=== PATIENT | female | born 1995 | race African-American/Black ===

== ENCOUNTER 2020-12-18 08:54 | Emergency (ER) | payer BC, MEDICAID ==
--- NOTE | 2020-12-18 11:25 | US ---
INDICATION: Fourteen weeks . Pelvic pain. TECHNIQUE: Ultrasound OB pelvis transabdominal. Real-time monzon-scale imaging of the fetus was performed as well as color Doppler and spectral Doppler analysis of the umbilical artery. COMPARISON: None. FINDINGS: Sonographic imaging demonstrates a single living intrauterine gestation. Fetus demonstrates a regular cardiac rate of 140 beats per minute. Fetus has a cephalic orientation. The placenta lies posterior without evidence of placenta previa. Amniotic fluid volume appears normal with a single deepest pocket of 3.9 cm. Biometry: Biparietal diameter: 2.7 cm, 14 weeks 6 days. Head circumference: 10.2 cm, 14 weeks 6 days. Abdominal circumference: 8.9 cm, 15 weeks 1 day. Femoral length: 1.7 cm, 15 weeks 1 day. The composite ultrasound gestational age is calculated at 15 weeks 0 days with an estimated sonographic due date of June 11, 2021. The weight is estimated at 114 grams, the 87th percentile. IMPRESSION: 1.Single viable intrauterine . 2.No abnormality evident. No finding to explain pain. Dictated by Wilfred Mesa MD @ 12/18/2020 11:23:[address] Wilfred Mesa @ Dec 18 2020 11:23AM
--- NOTE | 2020-12-18 12:04 | EDM.PDOC ---
ED HPI GENERAL MEDICAL PROBLEM - General Chief Complaint: [employer] Problem Stated Complaint: CRAMPING, PT IS Time Seen by Provider: 12/18/20 09:32 - History of Present Illness INITIAL COMMENTS - FREE TEXT/NARRATIVE: HISTORY AND PHYSICAL: History of present illness: This is a 25-year-old female who is 4 para 1 who presents to the ER today after being referred here from [facility] for evaluation of abdomina l pain during . Patient is approximately 14 weeks by date and ultrasound. Patient reports that she has had close follow-up with her [employer] doctor. Patient reports that early this morning she started experiencing cramping in her abdomen with no vaginal bleeding or discharge. Patient denies any recent fevers, shakes, chills, nausea, vomiting, diarrhea, dysuria, frequency, urgency, chest pain, shortness of breath. Patient reports that her abdominal pain and cramping has currently subsided. Patient reports that she declined ambulance transfer from [facility] and came here by POV for an ultrasound as recommended by them. Review of systems: As per history of present illness and below otherwise all systems reviewed and negative. Past medical history: As per history of present illness and as reviewed below otherwise noncontributory. Surgical history: As per history of present illness and as reviewed below otherwise noncontributory. Social history: No reported history of drug abuse. Family history: As per history of present illness and as reviewed below otherwise noncontributory. Physical exam: This patient was seen and evaluated during the 2019 SARS-CoV-2 novel coronavirus pandemic period. Community viral transmission is ongoing at time of this encounter and the emergency department is operating under pandemic response procedures. Constitutional: Patient is oriented to person, place, and time. Appears well- developed and well-nourished. No distress. HEENT: Moist mucous membranes Head: Normocephalic and atraumatic Eyes: Right eye exhibits no discharge. Left eye exhibits no discharge. No scleral icterus Neck: Normal range of motion. No tracheal deviation present. Cardiovascular: Normal rate and regular rhythm. Pulmonary: Effort normal, no respiratory distress. Abdominal: No distention, gravid and age-appropriate for 14 weeks. Soft no rebound/guarding, no psoas or obturator signs, no tenderness at Mcberney's point, no Becker's sign. Pt does not present with an exam that would be consistent with an acute surgical abdomen at this time Musculoskeletal: Normal range of motion Neurologic: Alert and oriented to person, place and time. Skin: [place], warm and dry. Psychiatric: Normal mood and affect. Behavior is normal. Judgment and thought content normal. Nursing note and vital signs have been reviewed Diagnostics: [] Therapeutics: Ultrasound reveals a 14-week 6-day IUP with no other abnormalities identified on ultrasound. Lab tests reviewed from [facility] all of which were unremarkable including a normal CBC, CMP, LFTs, SARS negative, normal urinalysis, Assessment and plan: 25-year-old female who is with abdominal cramping earlier today which is currently resolved. Patient's ultrasound was unremarkable with a 14-week 6- day IUP. Patient is clinically hemodynamically stable. Patient be discharged home with follow-up with her primary [employer] doctor Reassessment at the time of disposition demonstrates that the patient is in no acute distress. The patient has remained stable throughout the entire ED visit and is without objective evidence for acute process requiring urgent intervention or hospitalization. The patient is stable for discharge, counseling is provided as documented above, discussed symptomatic treatment and specific conditions for return. I have spoken with the patient/caregiver and discussed todays findings, in addition to providing specific details for the plan of care. Questions are answered and there is agreement with the plan. Definitive disposition and diagnosis as appropriate pending reevaluation and review of above. bilateral lower abdomen Pain Score (Numeric/FACES): 2 - Related Data Allergies Allergy/AdvReac Type Severity Reaction Status Date / Time No Known Allergies Allergy Verified 12/18/20 09:25 Home Meds: Home Meds Ondansetron [Zofran ODT] 12/18/20 [History] Past Medical History - Past Health History Medical/Surgical History: Denies Medical/Surgical History HEENT History: Reports: None Cardiovascular History: Reports: None Respiratory History: Reports: None Gastrointestinal History: Reports: None Genitourinary History: Reports: None [employer] History: Reports: Musculoskeletal History: Reports: None Neurological History: Reports: None Psychiatric History: Reports: None Endocrine/Metabolic History: Reports: None Hematologic History: Reports: None Immunologic History: Reports: None Oncologic (Cancer) History: Reports: None Dermatologic History: Reports: None - Infectious Disease History Infectious Disease History: Reports: None - Past Surgical History Head Surgeries/Procedures: Reports: None Social & Family History - Family History Family Medical History: No Pertinent Family History - Tobacco Use Tobacco Use Status *Q: Never Tobacco User Second Hand Smoke Exposure: No - Caffeine Use Caffeine Use: Reports: None - Recreational Drug Use Recreational Drug Use: No ED ROS GENERAL - Review of Systems Review Of Systems: See Below ED EXAM, GENERAL - Physical Exam Exam: See Below Course - Vital Signs Last Recorded V/S: Last Vital Signs Temp 98.4 F 12/18/20 09:20 Pulse 78 12/18/20 10:10 Resp 20 12/18/20 10:10 BP 98/57 L 12/18/20 10:10 Pulse Ox 97 12/18/20 10:10 Departure - Departure Time of Disposition: 12:03 Disposition: Home, Self-Care 01 Condition: Good Clinical Impression: Abdominal pain during in second trimester - Discharge Information Instructions: Abdominal Pain During , [id number] Referrals: Beatriz Wayne MD [Primary Care Provider] - Additional Instructions: You were seen and evaluated in ER today secondary to abdominal pain during her second trimester. The ultrasound report did not show any significant abnormalities. The ultrasound revealed a 14-week 6-day baby. Please make an appointment to follow-up with your [employer] doctor for further evaluation. The following information is given to patients seen in the emergency department who are being discharged to home. This information is to outline your options for follow-up care. We provide all patients seen in our emergency department with a follow-up referral. The need for follow-up, as well as the timing and circumstances, are variable depending upon the specifics of your emergency department visit. If you don't have a primary care physician on staff, we will provide you with a referral. We always advise you to contact your personal physician following an emergency department visit to inform them of the circumstance of the visit and for follow-up with them and/or the need for any referrals to a consulting specialist. The emergency department will also refer you to a specialist when appropriate. This referral assures that you have the opportunity for follow-up care with a specialist. All of these measure are taken in an effort to provide you with optimal care, which includes your follow-up. Under all circumstances we always encourage you to contact your private physician who remains a resource for coordinating your care. When calling for follow-up care, please make the office aware that this follow-up is from your recent emergency room visit. If for any reason you are refused follow-up, please contact the [facility] Emergency Department at and asked to speak to the emergency department charge nurse. [facility] [address] [place] [id number] [facility] [address] [place] [id number] Sepsis Event Note (ED) - Evaluation Sepsis Screening Result: No Definite Risk - Focused Exam Vital Signs: Vital Signs Temp Pulse Resp BP Pulse Ox 12/18/20 10:10 78 20 98/57 L 97 12/18/20 09:20 98.4 F 94 20 121/70 98
== END 2020-12-18 12:24 | disposition home or self-care (01) ==
LOC: MW.ED 08:54
DX: O99.891 Other specified diseases and conditions complicating pregnancy (principal); R10.31 Right lower quadrant pain; R10.32 Left lower quadrant pain; Z3A.14 14 weeks gestation of pregnancy
CPT/HCPCS: 76801; 76801-26; 99284-25

== ENCOUNTER 2021-06-10 05:06 | Inpatient (IN) | payer BC, MEDICAID ==
[2021-06-10] MEDS ORDERED: Lidocaine/Prilocaine 2.5-2.5% Crm 30 GM Tube TOP STA (05:31)
[2021-06-10] MEDS ORDERED: Sodium Chloride 0.9% 10 ML Syringe FLUSH PRN (05:32)
[2021-06-10] MEDS ORDERED: Sodium Chloride 0.9% 20 ML SDV IV PRN (05:32)
[2021-06-10] MEDS ORDERED: Citric Acid/Sodium Citrate Solution 30 ML Cup PO ONE (05:32)
[2021-06-10] MEDS ORDERED: Sodium Chloride 0.9% 2.5 ML Syringe FLUSH PRN (05:32)
[2021-06-10] MEDS ORDERED: Oxytocin/0.9 % Sodium Chloride 30 UNIT/500 ML BAG IV SCH (05:45)
[2021-06-10] MEDS: Lactated Ringers 1,000 ML IV SCH ×4 (06:30→19:02)
[2021-06-10] MEDS ORDERED: Morphine PF 10 MG/10 ML SDV ONE (07:00)
[2021-06-10] MEDS ORDERED: Ondansetron 4 MG/2 ML SDV ONE ×2 (07:00)
[2021-06-10] MEDS ORDERED: Oxytocin 10 Units/1 ML SDV ONE ×3 (07:00)
[2021-06-10] MEDS ORDERED: fentaNYL 100 MCG/2 ML SDV ONE (07:00)
[2021-06-10] MEDS ORDERED: ceFAZolin 1 GM Vial ONE ×2 (07:01)
[2021-06-10] MEDS ORDERED: Acetaminophen/oxyCODONE 325-5 MG Tab PO PRN ×2 (07:13→08:51)
[2021-06-10] MEDS ORDERED: Morphine 2 MG/ML SYRINGE IVPUSH PRN (07:13)
[2021-06-10] MEDS ORDERED: HYDROmorphone 1 MG/ML Syringe IVPUSH PRN (07:13)
[2021-06-10] MEDS ORDERED: Nalbuphine 10 MG/1 ML Vial IVPUSH PRN (07:13)
[2021-06-10] MEDS ORDERED: Metoclopramide 10 MG/2 ML SDV IVPUSH PRN (07:13)
[2021-06-10] MEDS ORDERED: Ondansetron 4 MG/2 ML SDV IVPUSH PRN ×3 (07:13→08:51)
[2021-06-10] MEDS ORDERED: Albuterol 0.083% 2.5 MG/3 ML Neb Soln NEB PRN (07:13)
[2021-06-10] MEDS ORDERED: fentaNYL 100 MCG/2 ML SDV IVPUSH PRN ×2 (07:13)
[2021-06-10] MEDS ORDERED: Naloxone 0.4 MG/ML SDV IVPUSH PRN (07:13)
[2021-06-10] MEDS ORDERED: diphenhydrAMINE 50 MG/ML SDV IVPUSH PRN ×2 (07:13→08:51)
[2021-06-10] MEDS ORDERED: Ropivacaine 0.5% 5 MG/ML 30 ML SDV ONE ×2 (07:35)
[2021-06-10] MEDS ORDERED: Tranexamic Acid 1,000 MG in Sodium Chloride 0.9% 100 ML IV PRN (08:51)
[2021-06-10] MEDS ORDERED: Oxytocin 10 Units/1 ML SDV IM PRN (08:51)
[2021-06-10] MEDS ORDERED: Bisacodyl 10 MG Supp RECTAL PRN (08:51)
[2021-06-10] MEDS ORDERED: Methylergonovine 0.2 MG/1 ML Amp IM PRN (08:51)
[2021-06-10] MEDS ORDERED: Misoprostol 200 MCG Tab RECTAL PRN (08:51)
[2021-06-10] MEDS ORDERED: Lanolin 100% Cream 7 GM Tube TOP PRN (08:51)
[2021-06-10] MEDS ORDERED: Aluminum Hydroxide/Magnesium Hydroxide/Simethicone XS Susp 30 ML Cup PO PRN (08:51)
[2021-06-10] MEDS: Docusate Sodium 100 MG Cap PO SCH ×2 (09:00→21:05)
[2021-06-10] MEDS: Ketorolac 30 MG/ML SDV IVPUSH SCH ×3 (09:31→21:04)
[2021-06-10] MEDS: Simethicone 80 MG Tab.Chew PO SCH ×3 (12:00→23:46)
[2021-06-11] MEDS: Ketorolac 30 MG/ML SDV IVPUSH SCH ×2 (03:04→09:26)
[2021-06-11] MEDS: Simethicone 80 MG Tab.Chew PO SCH ×3 (05:38→19:38)
[2021-06-11] MEDS: Docusate Sodium 100 MG Cap PO SCH ×2 (09:26→20:41)
[2021-06-11] MEDS: Ibuprofen 800 MG Tab PO PRN ×2 (16:10→23:18)
[2021-06-11] MEDS: Acetaminophen/oxyCODONE 325-5 MG Tab PO PRN (20:41)
[2021-06-12] MEDS: Acetaminophen/oxyCODONE 325-5 MG Tab PO PRN ×3 (00:48→11:40)
[2021-06-12] MEDS: Simethicone 80 MG Tab.Chew PO SCH ×2 (00:50→06:27)
[2021-06-12] MEDS: Ibuprofen 800 MG Tab PO PRN (07:28)
[2021-06-12] MEDS: Docusate Sodium 100 MG Cap PO SCH (09:19)
== END 2021-06-12 12:17 | disposition home or self-care (01) | DRG 540 ==
LOC: MW.OB 05:06
PROVIDERS: ADMIT Obstetrics & Gynecology; ATTEND Obstetrics & Gynecology
PROC: 10D00Z1 Extraction of Products of Conception, Low, Open Approach (ICD-10-PCS; principal; 2021-06-10)
DX: O34.211 Maternal care for low transverse scar from previous cesarean delivery (principal); Z37.0 Single live birth; Z20.822 Contact with and (suspected) exposure to COVID-19; Z3A.39 39 weeks gestation of pregnancy
CPT/HCPCS: 36415; 59025; 64488; 82803; 85014; 85018; 85027; 86592; 86850; 86900; 86901; A9270-GY; J0690; J1200; J1885; J2274; J2370; J2405; J2590; J2795; J3010; J7120; U0002